=== PATIENT | female | born 1990 | race African-American/Black ===

== ENCOUNTER 2020-10-14 20:10 | Emergency (ER) | payer SELFPAY ==
[~2020-10-14] VITALS: Ht 172.7 cm; Wt 63.6 kg
[2020-10-14 20:52] VITALS: BP 112/80
== END 2020-10-14 22:00 | disposition left against medical advice (07) ==
LOC: EMS 20:10
DX: R53.1 Weakness (principal); Z53.21 Procedure and treatment not carried out due to patient leaving prior to being seen by health care provider